=== PATIENT | male | born 1965 | race Hispanic/Latino ===

== ENCOUNTER 2019-06-24 20:02 | Emergency (ER) | payer MEDICAID ==
[~2019-06-24] VITALS: Ht 162.6 cm; Wt 85.5 kg
[~2019-06-24 20:02] MED LIST: BENADRYL 50MG C50 MG OR; MEDDOSEPAK PO; MYCOLOG30 GM EX; NO; NO HOME MEDS; ULTRAM50 M1 OR
[2019-06-24 23:08] LABS: HEMATOCRIT 37.1 % (39.0-50.0); IMMATURE GRANULOCYTES 0.6 % (0.0-5.0); NEUT# 10.29 thou/uL (1.82-7.42); RED BLOOD COUNT 4.2 mill/uL (4.70-6.10); RED CELL DISTRI WIDTH 12.8 % (11.5-15.5)
[2019-06-24 23:26] LABS: MEAN CELL VOLUME 88.3 fL CALC (80.0-100.0)
[2019-06-25 00:10] VITALS: BP 119/72
== END 2019-06-25 00:14 | disposition home or self-care (01) ==
LOC: ED 20:02
PROVIDERS: Family Medicine
DX: J40 Bronchitis, not specified as acute or chronic (principal); E11.9 Type 2 diabetes mellitus without complications; I10 Essential (primary) hypertension

== ENCOUNTER 2021-12-13 20:07 | Emergency (ER) | payer MEDICAID ==
[~2021-12-13] VITALS: Ht 162.6 cm; Wt 85.0 kg
[2021-12-13 21:08] LABS: URINE BILIRUBIN - DIPSTICK NEGATIVE (NEGATIVE); URINE BLOOD DIPSTICK TRACE-INTACT (NEGATIVE); URINE COLOR YELLOW; URINE GLUCOSE - DIPSTICK >=1000 mg/dL (NEGATIVE); URINE KETONE NEGATIVE (NEGATIVE); URINE LEUK ESTERASE NEGATIVE (NEGATIVE); URINE PROTEIN - DIPSTICK NEGATIVE (NEG-TRACE); URINE UROBILINOGEN - DIPSTICK 0.2 E.U./dL (0.2)
[2021-12-13 21:09] LABS: HEMATOCRIT 36.3 % (39.0-50.0); MEAN CELL VOLUME 89.9 fL CALC (80.0-100.0); MEAN CORPUSCULAR HGB 32.2 pG CALC (26.0-32.0); MEAN CORPUSCULAR HGB CONC 35.8 g/dL CAL (32.0-36.0); NEUT# 5.22 thou/uL (1.82-7.42); RED BLOOD COUNT 4.04 mill/uL (4.70-6.10); RED CELL DISTRI WIDTH 12.3 % (11.5-15.5); URINE NITRITE - DIPSTICK NEGATIVE (Negative)
[2021-12-13 21:29] LABS: ALBUMIN 3.7 g/dL (3.2-5.0); ALKALINE PHOSPHATASE 166 u/l (38-126); BUN 16 mg/dL (9-20); BUN/CREATININE RATIO 15 (12-20 (CALC)); CARBON DIOXIDE 24 mmol/l (22-30); CHLORIDE 99 mmol/l (95-108); CREATININE 1.1 mg/dL (0.7-1.3); GFR > 60 ML/MIN (>=60 (CALC)); GFR FOR AFR.AMER. > 60 ML/MIN (>=60 (CALC)); POTASSIUM 3.5 mmol/l (3.5-5.1); SGOT/AST 35 u/l (17-59); TOTAL PROTEIN 7.2 g/dL (6.3-8.2)
[2021-12-13 21:36] LABS: ANION GAP 13 (6-22 (CALC)); BILIRUBIN, TOTAL 0.3 mg/dL (0.0-1.4); SODIUM 132 mmol/l (137-146)
[2021-12-13 21:41] LABS: MYOGLOBIN 48 ng/mL (0 - 121)
[2021-12-13 22:02] VITALS: BP 157/87
== END 2021-12-13 22:29 | disposition home or self-care (01) ==
LOC: ED 20:07
PROVIDERS: Emergency Medicine
DX: E11.65 Type 2 diabetes mellitus with hyperglycemia (principal); I10 Essential (primary) hypertension

== ENCOUNTER 2024-01-15 18:51 | Observation (INO) | payer SELFPAY ==
[2024-01-15] VITALS (17 sets, daily range): BP systolic 141–169; BP diastolic 70–99
[~2024-01-15] VITALS: Ht 162.6 cm; Wt 89.4 kg
[~2024-01-15 18:51] MED LIST changes: +TOBREX OPTH5 ML/BTL OU
[2024-01-15] MEDS ORDERED: FUROSEMIDE 40 MG/4 ML SDV IV ONE (19:30)
[2024-01-15 19:45] LABS: BASO% 0.5 % (0-3); EOS% 2.5 % (0-8); HEMATOCRIT 35.2 % (39.0-50.0); HEMOGLOBIN 12.1 g/dl (14.0-18.0); IMMATURE GRANULOCYTES 0.5 % (0.0-5.0); LYMPH% 23.3 % (15-41); MEAN CELL VOLUME 93.1 fL CALC (80.0-100.0); MEAN CORPUSCULAR HGB CONC 34.4 g/dL CAL (32.0-36.0); MONO% 6.8 % (2-13); NEUT# 6.69 thou/uL (1.82-7.42); NEUT% 66.4 % (42-76); RED BLOOD COUNT 3.78 mill/uL (4.70-6.10); RED CELL DISTRI WIDTH 13.5 % (11.5-15.5)
[2024-01-15 19:58] LABS: URINE BILIRUBIN - DIPSTICK Negative (NEGATIVE); URINE BLOOD DIPSTICK Trace-lysed (NEGATIVE); URINE GLUCOSE - DIPSTICK Negative (NEGATIVE); URINE KETONE Negative (NEGATIVE); URINE LEUK ESTERASE Negative (NEGATIVE); URINE NITRITE - DIPSTICK Negative (Negative); URINE PROTEIN - DIPSTICK 30 mg/dL (NEG-TRACE); URINE UROBILINOGEN - DIPSTICK 0.2 E.U./dL (0.2)
[2024-01-15 20:00] LABS: URINE COLOR Yellow; URINE RBC 0-2 RBC/hpf (0-5); URINE WBC 0-2 WBC/hpf (0-5)
[2024-01-15 20:02] LABS: ALBUMIN 3.9 g/dL (3.2-5.0); ANION GAP 11 (6-22 (CALC)); BILIRUBIN, TOTAL 0.7 mg/dL (0.2-1.3); BUN 10 mg/dL (9-20); BUN/CREATININE RATIO 8 (12-20 (CALC)); CARBON DIOXIDE 19 mmol/l (22-30); CHLORIDE 111 mmol/l (95-108); CPK 201 u/l (55-170); CREATININE 1.3 mg/dL (0.7-1.3); ESTIMATED GFR 63 ML/MIN (>=90 (CALC)); LIPASE 59 u/l (23-300); MAGNESIUM 1.6 mg/dL (1.6-2.3); POTASSIUM 3.7 mmol/l (3.5-5.1); SGOT/AST 40 u/l (17-59); SODIUM 137 mmol/l (137-146); TOTAL PROTEIN 7.3 g/dL (6.3-8.2)
[2024-01-15 20:03] LABS: ALKALINE PHOSPHATASE 71 u/l (38-126); D-DIMER 0.64 mg/L (0.19-0.60)
[2024-01-15 20:11] LABS: PROTHROMBIN TIME 9.8 SECONDS (9.0-12.5)
[2024-01-15] MEDS ORDERED: hydrALAZINE HCL 20 MG/ML VIAL(1 ML) IV ONE (20:30)
[2024-01-15] MEDS ORDERED: BLOOD PRESURE (21:33)
[2024-01-15] MEDS ORDERED: ASPIRIN 81 MG/TAB PO ONE (23:40)
[2024-01-15] MEDS ORDERED: IBUPROFEN 800 MG/TAB PO PRN (23:50)
[2024-01-15] MEDS ORDERED: FAMOTIDINE 10MG/ML 2ML SDV IV PRN (23:50)
[2024-01-15] MEDS ORDERED: ONDANSETRON HCl 4 MG/2 ML SDV IV PRN (23:50)
[2024-01-15] MEDS ORDERED: ALUM & MAG HYDROX-SIMETHICONE 30 ML PO PRN (23:50)
[2024-01-15] MEDS ORDERED: MAGNESIUM HYDROXIDE 30 ML UDC PO PRN (23:50)
[2024-01-15] MEDS ORDERED: ONDANSETRON 4 MG/TAB ODT PO PRN (23:50)
[2024-01-15] MEDS ORDERED: FUROSEMIDE 40 MG/4 ML SDV IV SCH (23:55)
[2024-01-16] VITALS (10 sets, daily range): BP systolic 131–168; BP diastolic 69–92
[2024-01-16] MEDS ORDERED: ASPIRIN 81 MG/TAB ONE (00:54)
[2024-01-16 05:49] LABS: BASO% 0.6 % (0-3); EOS% 2.8 % (0-8); HEMATOCRIT 36.9 % (39.0-50.0); HEMOGLOBIN 12.9 g/dl (14.0-18.0); IMMATURE GRANULOCYTES 0.5 % (0.0-5.0); LYMPH% 16.3 % (15-41); MEAN CELL VOLUME 92.7 fL CALC (80.0-100.0); MEAN CORPUSCULAR HGB 32.4 pG CALC (26.0-32.0); MONO% 6.2 % (2-13); NEUT# 7.79 thou/uL (1.82-7.42); NEUT% 73.6 % (42-76); RED BLOOD COUNT 3.98 mill/uL (4.70-6.10); RED CELL DISTRI WIDTH 13.6 % (11.5-15.5)
[2024-01-16 08:01] LABS: ALBUMIN 3.8 g/dL (3.2-5.0); BILIRUBIN, TOTAL 0.7 mg/dL (0.2-1.3); CREATININE 1.3 mg/dL (0.7-1.3); MAGNESIUM 1.6 mg/dL (1.6-2.3); POTASSIUM 3.5 mmol/l (3.5-5.1)
[2024-01-16 08:06] LABS: PROTHROMBIN TIME 9.9 SECONDS (9.0-12.5)
[2024-01-16 08:30] LABS: TSH, 3RD GENERATION 7.95 uIU/mL (0.47 - 4.68)
[2024-01-16] MEDS ORDERED: LOSARTAN Potassium 50 MG/TAB PO SCH (09:00)
[2024-01-16] MEDS ORDERED: PNEUMOCOCCAL 20-VALENT CONJUGA 0.5 ML/DOSE INJ IM SCH (09:00)
[2024-01-16] MEDS ORDERED: METFORMIN HCL500 M1 PO (09:52)
[2024-01-16] MEDS ORDERED: AMARYL1 MG PO (09:52)
[2024-01-16] MEDS ORDERED: ATORVASTATIN CA10 MG PO (09:52)
[2024-01-16] MEDS ORDERED: LISINOP/HCTZ1 TAB PO (09:52)
[2024-01-16] MEDS ORDERED: MELOXICAM15 MG PO (09:53)
[2024-01-16] MEDS ORDERED: FENOFIBRATE145 MG PO (09:53)
== END 2024-01-16 13:23 | disposition home or self-care (01) | DRG 948 ==
LOC: ED 18:51 → ED-I 20:50 → ED 23:50 → MS2 23:51
PROVIDERS: Internal Medicine; ADMIT Internal Medicine; ATTEND Internal Medicine
PROC: 3E0234Z Introduction of Serum, Toxoid and Vaccine into Muscle, Percutaneous Approach (ICD-10-PCS; principal; 2024-01-16)
DX: R60.0 Localized edema (principal); J81.1 Chronic pulmonary edema; I10 Essential (primary) hypertension; E11.9 Type 2 diabetes mellitus without complications; E78.5 Hyperlipidemia, unspecified; I08.3 Combined rheumatic disorders of mitral, aortic and tricuspid valves; F10.90 Alcohol use, unspecified, uncomplicated; Z86.11 Personal history of tuberculosis; Z23 Encounter for immunization
CPT/HCPCS: G0378; Q9967